=== PATIENT | female | born 1955 | race Caucasian/White ===

== ENCOUNTER → 2024-03-15 | Outpatient (CLI) | payer OTHER, SELFPAY ==
[2024-03-15 16:16] LABS: Basophils # (Auto) 0.1 Thou/mm3 (0.0-0.2); Basophils % (Auto) 2 % (0-2.5); Eosinophils # (Auto) 0.1 Thou/mm3 (0.0-0.5); Eosinophils % (Auto) 2 % (0-10); Hematocrit 29.7 % (36.0-46.0); Hemoglobin 10.2 g/dL (12.0-16.0); Immature Granulocytes % (Auto) 0 % (0-0); Immature Granulocytes Auto 0.01 Thou/mm3 (0.00-0.00); Lymphocytes # (Auto) 0.9 Thou/mm3 (1.0-4.8); Lymphocytes % (Auto) 23 % (10-50); Mean Corpuscular HGB Conc 34.3 g/dl (31.0-37.0); Mean Corpuscular Hemoglobin 34.6 pg (25.0-35.0); Mean Corpuscular Volume 101 fL (80-100); Monocytes # (Auto) 0.5 Thou/mm3 (0.0-0.8); Monocytes % (Auto) 13 % (0-12); Neutrophils # (Auto) 2.3 Thou/mm3 (1.8-7.7); Neutrophils % (Auto) 60 % (37-80); Nucleated Red Blood Cell % 0 /100 WBC (0); Platelet Count 248 Thou/mm3 (140-440); RDW Standard Deviation 44.2 fL (36.4-46.3); Red Blood Count 2.95 Miln/mm3 (4.00-5.20); White Blood Count 3.8 Thou/mm3 (3.6-11.0)
[2024-03-15 16:36] LABS: Alanine Aminotransferase 16 U/L (10-49); Albumin, Serum 4.6 gm/dL (3.4-4.8); Albumin/Globulin Ratio 2.6 (1.2-2.2); Alkaline Phosphatase 99 U/L (46-116); Anion Gap 6 (7-16); Aspartate Amino Transferase 18 U/L (0-34); BUN/Creatinine Ratio 10 Ratio (12-20); Bilirubin,Total 0.4 mg/dL (0.3-1.2); Blood Urea Nitrogen 7 mg/dL (9-23); Carbon Dioxide 28.8 mMol/L (20.0-31.0); Chloride 93 mMol/L (98-107); Creatinine (Component) 0.7 mg/dL (0.6-1.3); Globulin 1.8 gm/dL (2.3-3.5); Glucose 86 mg/dL (74-106); Osmolality,Calculated 254 (275-295); Phosphorous 3.4 mg/dL (2.4-5.1); Potassium 4.7 mMol/L (3.4-5.1); Sodium 128 mMol/L (136-145); Total Protein 6.4 gm/dL (5.7-8.2); eGFR > 60 See Note
== END | disposition home or self-care (01) ==
LOC: SCTO 14:33
PROVIDERS: PCP Internal Medicine; Referring Provider Internal Medicine; Visit Provider Internal Medicine Hematology & Oncology
DX: C50.912 Malignant neoplasm of unspecified site of left female breast (principal); R51.9 Headache, unspecified; I25.10 Atherosclerotic heart disease of native coronary artery without angina pectoris; I48.91 Unspecified atrial fibrillation; E87.1 Hypo-osmolality and hyponatremia
CPT/HCPCS: 36415; 80053; 84100; 85025

== ENCOUNTER → 2024-04-16 | Outpatient (CLI) | payer OTHER, SELFPAY ==
--- NOTE | 2024-04-16 10:19 | XR_ITS ---
Examination: CT chest with intravenous contrast CT chest without intravenous contrast 2-D reconstructions Date and time of exam:April 16, 2024 at 1043 hours INDICATIONS: Diagnosis malignant neoplasm left breast, TE chest December 29, 2023 bilateral pulmonary nodules aneurysmal dilatation ascending thoracic aorta CTDI:vol (mGy) 7.64 DLP: (mGycm) 287 Technique: Multiple axial sections of the thorax have been obtained. 3 mm slice thickness, from the hemidiaphragms to above the apices of the lungs. Mediastinal and lung density settings have been obtained. Intravenous contrast administered 60 cc [id number]-370. Noncontrast images have also been obtained. 2-D sagittal coronal images obtained. Low dose protocols were performed. One or more of the following dose reduction techniques were used; automated exposure control, adjustment of the mA and/or KV according to patient size, use of iterative reconstruction technique. Findings: 6 mm calcified right thyroid nodule Ascending thoracic aorta AP dimension 4.2 cm Pulmonary artery segments are not enlarged No pulmonary artery emboli Stable bilateral pulmonary nodules No interval pneumonia or pulmonary edema Liver cysts Absent gallbladder No pancreatic mass 2 mm 1 mm right renal calculi 1 mm 1 mm left renal calculi, no hydronephrosis Intact osseous structures IMPRESSION: 6 mm partially calcified right thyroid nodule Ascending thoracic aortic aneurysm AP dimension 4.2 cm Stable bilateral pulmonary nodules No interval pneumonia or pulmonary edema Bilateral nonobstructing renal calculi
== END | disposition home or self-care (01) ==
PROVIDERS: PCP Internal Medicine; Referring Provider Internal Medicine Hematology & Oncology; Visit Provider Internal Medicine Hematology & Oncology
DX: E04.1 Nontoxic single thyroid nodule (principal); I71.20 Thoracic aortic aneurysm, without rupture, unspecified; R91.8 Other nonspecific abnormal finding of lung field; N20.0 Calculus of kidney
CPT/HCPCS: 71270; A4649; Q9967

== ENCOUNTER → 2024-05-03 | Outpatient (CLI) | payer OTHER, SELFPAY ==
[2024-05-03 15:05] LABS: Albumin, Serum 4.7 gm/dL (3.4-4.8); Anion Gap 6 (7-16); BUN/Creatinine Ratio 10 Ratio (12-20); Blood Urea Nitrogen 6 mg/dL (9-23); Calcium 9.6 mg/dL (8.3-10.6); Calcium (Corrected) 9.6 mg/dL (8.5-10.1); Carbon Dioxide 30.4 mMol/L (20.0-31.0); Chloride 91 mMol/L (98-107); Creatinine (Component) 0.6 mg/dL (0.6-1.3); Glucose 84 mg/dL (74-106); Osmolality,Calculated 251 (275-295); Phosphorous 3.9 mg/dL (2.4-5.1); Potassium 4.2 mMol/L (3.4-5.1); Sodium 127 mMol/L (136-145); eGFR > 60 See Note
== END | disposition home or self-care (01) ==
LOC: COPL 13:55
PROVIDERS: PCP Internal Medicine; Referring Provider Internal Medicine; Visit Provider Internal Medicine
DX: E87.1 Hypo-osmolality and hyponatremia (principal)
CPT/HCPCS: 36415; 80069

== ENCOUNTER 2024-05-10 10:28 | Outpatient (RCR) | payer OTHER, SELFPAY ==
--- NOTE | 2024-05-10 13:30 | CTCFLWUP_ITS ---
Patient: KAYLA CARBAJAL : 1955 Page 2 of 2 FOLLOW UP NOTE DATE OF SERVICE: 05/10/2024 NAME: KAYLA CARBAJAL ACCOUNT: [id number] : 1955 AGE: 69 INTERVAL HISTORY: Patient is doing well and have no new complaints. 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 All this information is obtained from Ms. Carbajal. We do not have any of the records. According to Ms. Carbajal all her treatments were done in [facility]. She also states that since these treatments were done so long ago it will be difficult to get the records. She feels that most of her records might have been destroyed. 1989: Patient was diagnosed with melanoma. According to see her 7 lesions were removed. All were cancerous. The surgeries were done in [facility]. 1994: Ms. Carbajal was diagnosed with left breast cancer. She had radical mastectomy. 1 lymph node was positive. It was stage II disease. She had 1 year of chemotherapy which included Adriamycin, 5-FU and methotrexate. 1996: Ms. Carbajal was diagnosed with stage IV metastatic breast cancer. The cancer has spread to the lungs as well as left side of the neck. She was found to have 40 tumors in the neck. She also had a left neck dissection which showed 9 positive nodes. Ms. Carbajal had 3 years of various chemotherapy regimens which included Navelbine. She was started on Herceptin. However she was found to have HER2/melody negative disease in 1997. November 1998: Patient had stem cell transplantation at [facility]. She was continued on chemotherapy/Herceptin treatments. Chemotherapies ended in 2000. Herceptin was continued until 2003. Patient had breast reconstruction surgery in [address] [place] [address] Angulo. 2011: Patient had acute kidney failure. June 2016 she had third breast reconstruction surgery by Dr. Angulo. 2020: Patient had a colonoscopy done. 12/25/2021: PET/CT scan? 02/02/2022: CT scan of the chest with IV contrast? 02/03/2022: Ms. Carbajal had bone scan at [facility] 03/23/2022: CT scan of the head without IV contrast? 10/21/2022: CT scan of the chest abdomen and pelvis with IV contrast? 11/01/2022: Bone scan? 05/26/2023: CT scan of the chest without contrast? OTHER MEDICAL HISTORY/CONDITIONS: Metastatic breast cancer Anemia HTN Peripheral neuropathy Acute kidney failure - 2011 tonsillectomy - 1959 Melanoma x 7 - 1989 Left breast lumpectomy and radical mastectomy with lymph node dissection - 1994- [place] Cholecystectomy - 1994 - [place] Left neck dissection - 1996 - [place] Hysterctomy - 1996 - [place] breast [place] [facility] [place] Breast reconstruction - 1996 - [place] Second breast reconstruction surgery - 2007 - Dr. Charles Grissom 3rd Breast reconstructive surgery - 2016 - Dr. Charles Grissom BLE bypass graft - 2020 ?Clone Other Med Hx? FAMILY HISTORY: Mother:?uterine Sibling:?Atipical?Ductal?Hyperplasia Children:?Paternal?Grandmother?-?breast Cancer History:?Maternal aunts x 4 - breast/leukemia/stomach/melanoma ?Clone Family Hx? 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 MEDICATIONS: 1. albuterol sulfate - 90 mcg/actuation As directed 2. baclofen - 5 mg 1 tab Daily 3. Belsomra - 20 mg 1 tab Every day before sleep 4. folic acid - 1 mg 2 tab Daily 5. gabapentin - 600 mg 2 tab Three times a day 6. losartan - 100 mg 1 tab Daily 7. spironolactone - 50 mg 1 tab Daily 8. traZODone - 150 mg 1 tab Every day before sleep?Palabra Meds? Medications Last Reconciled by Haley Jacobson MA on 05/10/2024 ALLERGIES: morphine REVIEW OF SYSTEMS: A complete 14-point review of systems was performed and is negative except as noted in interval history. PHYSICAL EXAMINATION: VITAL SIGNS: PAIN: 0 - No pain GENERAL APPEARANCE: Appears well, in no apparent distress, appropriately interactive. HEENT: Normocephalic, no temporal wasting, normal conjunctiva, no scleral icterus, normal hearing, lips without lesions, neck normal range of motion. CARDIOVASCULAR: Not assessed. PULMONARY: Normal respiratory effort, no respiratory distress or use of accessory muscles, speaking in full sentences, no tachypnea. EXTREMITIES: No pedal edema or cyanosis. SKIN: Normal skin appearance. NEUROLOGIC: Alert and oriented x4. PSHYCHIATRIC: Appropriate affect, mood normal, behavior normal, intact thought and speech. LABORATORY DATA: I have personally reviewed and interpreted each of the patient?s relevant lab tests, abnormal findings are below: Date 05/03/24 ??GLUCOSE,RANDOM?(mg/dL) 84 ??BLOOD?UREA?NITROGEN?(mg/dL) 6?L ??CREATININE?(mg/dL) 0.60 ??SODIUM?(mmol/L) 127?L ??POTASSIUM?(mmol/L) 4.2 ??CHLORIDE?(mmol/L) 91?L ??CrCl?(CandG)?(ml/min) 71.73 ??ALBUMIN,?SERUM?(gm/dl) 4.7 ??CALCIUM,?SERUM?(mg/dL) 9.6 ??CALCIUM?SERUM?(CORRECTED)?(mg/dL) 9.6 ASSESSMENT/PLAN: 1. History of stage IV breast cancer in the past with left-sided neck as well as pulmonary mets treated with chemotherapy as well as bone marrow transplantation in November 1998. Patient was treated with chemotherapy and had stem cell transplant after she was sent in remission. She had autologous transplant after ablative chemotherapy. Bilateral mastectomies with silicone implants. Patient follows with surgeon in [place] 2. History of melanoma in 1994. She have 7 lesion which were resected and had no recurrence since her transplant CT scan do not show any evidence of recurrence of cancer Patient follows with cardiology for her aneurysmal aorta Patient gives history of breast in her grandmother and ovarian cancer in her mother. Patient's mother in her 30s from ovarian cancer. Given history of ovarian and breast cancer in family and self history of breast cancer patient referred to genetic testing CBC CMP cancer hereditary testing RETURN TO CLINIC: I will see her back in the clinic in 6 month. BILLING AND COMPLIANCE: I reviewed external records from providers outside my specialty as summarized above. I spent a total of 50 minutes on this patient?s care on the day of their visit excluding time spent related to any billed procedures. This time includes time spent with the patient as well as time spent documenting in the medical record, reviewing patients records and tests, obtaining history, placing orders, communicating with other healthcare professionals, counseling the patient, family or caregiver, and/or care coordination for the diagnoses above. Electronically Signed by: Rubén Avila MD T: 1:28 PM CC: PCP: Ирина Kaiser Referring: Ирина Kaiser This document was completed utilizing speech recognition software. Grammatical errors, random word insertions, pronoun errors, and incomplete sentences are an occasional consequence of this system due to software limitations, ambient noise, and hardware issues. Any formal questions or concerns about the content, text or information contained within the body of this dictation should be directly addressed to the provider for clarification.
== END 2024-05-11 23:59 | disposition home or self-care (01) ==
LOC: SCTC 10:28
PROVIDERS: PCP Internal Medicine; Referring Provider Internal Medicine; Visit Provider Internal Medicine Hematology & Oncology
DX: Z08 Encounter for follow-up examination after completed treatment for malignant neoplasm (principal); Z85.3 Personal history of malignant neoplasm of breast; Z90.13 Acquired absence of bilateral breasts and nipples; Z92.21 Personal history of antineoplastic chemotherapy; Z85.820 Personal history of malignant melanoma of skin; Z94.84 Stem cells transplant status; Z80.41 Family history of malignant neoplasm of ovary; Z80.3 Family history of malignant neoplasm of breast
CPT/HCPCS: 99212; G0463

== ENCOUNTER 2024-06-26 13:21 | Outpatient (AMB) | payer OTHER, SELFPAY ==
--- NOTE | 2024-06-26 13:32 | PD.ORTHCLVIS ---
Vital signs 06/26/24 14:06 Height 1.63 m Height Method Stated Weight 52.758 kg Weight Measurement Method Standing Scale BMI 19.9 BP 175/100 H Blood Pressure Source Automatic Cuff Blood Pressure Location Left Upper Arm Position Sitting Respiration 18 Pulse 76 Pulse Source Monitor Temp 97.8 F Temp Source Temporal Artery Scan Pulse Oximetry (%) 97 Oxygen Delivery Method Room Air Med/Allergies Allergies & Medications Allergies morphine Allergy (Intermediate, Verified 06/26/24 14:07) vomiting, severe headache meperidine Allergy (Mild, Verified 06/26/24 14:07) vomiting, severe headache Medication Reconciliation albuterol sulfate 90 mcg/actuation aerosol inhaler 2 inh inhalation 3XD PRN Shortness Of Breath 06/15/22 [History Confirmed 06/26/24] gabapentin 600 mg tablet 1,200 mg PO TID 06/15/22 [History Confirmed 06/26/24] losartan 100 mg tablet 100 mg PO DAILY 06/15/22 [History Confirmed 06/26/24] spironolactone 50 mg tablet 50 mg PO DAILY 06/15/22 [History Confirmed 06/26/24] trazodone 150 mg tablet 150 mg PO HS 06/15/22 [History Confirmed 06/26/24] atenolol 50 mg tablet 50 mg PO QDAY 01/26/24 [History Confirmed 06/26/24] baclofen 5 mg tablet 5 mg PO HS PRN Restless Leg(S) 01/26/24 [History Confirmed 06/26/24] suvorexant 20 mg tablet (Belsomra) 20 mg PO HS 01/26/24 [History Confirmed 06/26/24] hydralazine 25 mg tablet 25 mg PO TID #90 tabs 01/29/24 [Rx Confirmed 06/26/24] sodium chloride 1,000 mg soluble tablet 1,000 mg PO BID #30 tabs 01/29/24 [Rx Confirmed 06/26/24] naproxen 500 mg tablet 500 mg PO BID #30 tabs 06/26/24 [Rx] Exam Exam Patient is in no acute distress and is cooperative with the examination today. Breathing is nonlabored. In no respiratory distress. Patient has no paraspinal tenderness. Spinal deformity cannot be appreciated. The gait of the patient is nonantalgic Bilateral extremities were evaluated and demonstrates sensation intact to light touch. Palpable pedal pulses are present. No significant edema is present. Bilateral knees were examined and the patient has full strength and range of motion.. The right hip was examined. Patient was able to flex to 90 degrees, adduct to 30 degrees, abduct to 40 degrees, internally rotate to 20 degrees, and externally rotate to 20 degrees. Patient has a negative logroll. Stinchfield is negative. The patient is nontender diffusely to touch. The left hip was examined. Patient was able to flex to 90 degrees, adduct to 30 degrees, abduct to 40 degrees, internally rotate to 20 degrees, and externally rotate to 20 degrees. Patient has a negative logroll. The stinchfield is negative. The patient is tender to palpation laterally Assessment and Plan Problem List (1) Trochanteric bursitis of left hip: Status: Acute Plan: Patient is a 69-year-old Female with left hip pain and trochanteric bursitis. We discussed different options including anti-inflammatories, physical therapy, and a injection. She would like to try all 3. Recommend hip bursa cortisone injection as patient would like to proceed with conservative treatment at this time. The risks and benefits of the procedure were reviewed with the patient and patient gave verbal consent to continue with the procedure. Procedure: performed by Dr. Dennis Using sterile technique the left hip bursa was thoroughly prepped with alcohol prep, and approximately 1 cc of Kenalog 40 mg/mL and 4 cc of 1% Lidocaine was injected without resistance. The patient tolerated the procedure well. Advanced Care Planning Discussion Advance care planning discussed with:: patient Office Procedures GNS Level of Care Nursing/Assessment Patient Status: Initial/New Patient Nursing Assessment/Reassesment: Medication Reconciliation, Update PMH in EMR and Vital Signs Coordination of Care: Complex Care and Chronic Disease 1-5, Education Complex Pt/Fam, Consent,records obtained, informed consent, 1 Ins Authorization, Lab and Imaging orders, Results/Orders obtained and Staff clarify orders New Patient Charge New Patient Point Assignment: 1124 New Patient Point Charge: FORENSIC SCIENCE EXAMINER Level 4 (6106-9165) Surgical Proc/IM SQ injection Major Surgical Procedure: Yes (KNEE INJECTION ) Medication Given Medication Given Medication Given: Yes Documented Dose Given: 4 Route: Infiitration Medication Given Medication Given Medication Given: Yes Documented Dose Given: 1 Route: Infiitration Office Meds Xylocaine 10 mg/mL (1 %) injection solution Performing Provider: Avery Dennis MD Performing Location: [facility] Administered by: Avery Dennis MD on 06/26/24 13:56 Dose Route Admin Location Dispensed Lot Number Expiration Date [facility] L[employer] T[employer]er 20 mL Infiltration 20 mL [id number] [facility] triamcinolone acetonide 40 mg/mL suspension for injection Performing Provider: Avery Dennis MD Performing Location: [facility] Administered by: Avery Dennis MD on 06/26/24 13:56 Dose Route Admin Location Dispensed Lot Number Expiration Date [facility] [employer] 40 mg intra-articular KNEE 1 mL [id number] 11/09/25 [id number] TEVA PARENTERAL MA Intake Visit Data Collection New Patient or Established: New Patient (never been to [facility]) Reason for Visit:: BILATERAL HIP PAIN Seen by Clinical Staff ONLY (RN/MA): No PCP or OBGYN visit in last 3 months: Yes Hx Now: No Do You Feel Safe at Home: Yes Authorities Contacted: N/A Questionairres Past Medical History Past Medical History Have you ever been diagnosed with any of the following: Neurological Problems Alzheimer's Disease: No Seizures: No Peripheral Neuropathy: Yes Cardiology Problems Myocardial Infarction: No Cardiac Arrhythmia: No Atrial Fibrillation: No Angina: No Heart Murmur: No Coronary Artery Disease: No Atherosclerotic Heart Disease: No Peripheral Vascular Disease: No Hypercholesterolemia: Yes Congestive Heart Failure: No Congenital Heart Disease: No Valvular Heart Disease: No Rheumatic Fever: No Cardiomyopathy: No Edema: No Pericarditis: No Cellulitis: No Deep Vein Thrombosis: No Hypertension: Yes Hypotension: No Varicose Veins: No Respiratory Problems Chronic Obstructive Pulmonary Disease (COPD): No Asthma: Yes Pneumonia: Yes Smoking: No Smoking Exposure: No Genital/Urinary Problems Renal Disease: No Reproductive Problems Breast Cancer: Yes Pelvic Inflammatory Disease: No Endocrine Problems Diabetes Mellitus Type 1: No Diabetes Mellitus Type 2: No Blood Problems Anemia: No Sickle Cell Disease: No Psychologic Problems Depression: Yes Anxiety: Yes Other Problems Falls: No Blood Transfusions: Yes Blood Transfusion Reaction: No Anesthesia Reactions: No Chemotherapy: Yes Cancer: Yes Surgical History Pacemaker: No Subjective Visit Visit for: new patient and hip Immunization / Flu Flu Vaccine in the Last 12 Months: Yes Flu Vaccine Exclusion Criteria: Already Received History of Present Illness Chief complaint: left hip trochanteric bursitis Patient is a 69-year-old female with a history of left hip trochanteric bursitis. She has had over 6 months of relief with the last injection. She would like a new left hip injection. The pain is directly on the side over the greater trochanter. Does not radiate past the knee. Pain Pain level (0-10): 6 Pain duration: ALL DAY Pain location: outside (lateral) Pain quality: sharp Pain timing: night Associated signs & symptoms: numbness Ambulatory data Ambulatory device: none Treatments Number of previous injections: 2 Improvement with previous injections: No Improvement with PT: No Improvement with NSAIDS: no Review of Systems Review of Systems: All systems negative unless otherwise noted in HPI.
[2024-06-26 14:06] VITALS: BP 175/100; PULSE 76; RESP 18; TEMP 36.6; O2SAT 97; BMI 19.9
== END 2024-06-26 13:55 | disposition home or self-care (01) ==
LOC: HODSRG 13:21
PROVIDERS: PCP Internal Medicine; Referring Provider Internal Medicine; Supervising Provider Orthopaedic Surgery Adult Reconstructive Orthopaedic Surgery; Visit Provider Orthopaedic Surgery Adult Reconstructive Orthopaedic Surgery
DX: M70.62 Trochanteric bursitis, left hip (principal); E78.00 Pure hypercholesterolemia, unspecified; I10 Essential (primary) hypertension; J45.909 Unspecified asthma, uncomplicated
CPT/HCPCS: 20610; 99204; J3301; J3490; G0463

== ENCOUNTER → 2024-08-02 | Outpatient (CLI) | payer OTHER, SELFPAY ==
[2024-08-02 12:21] LABS: Basophils % (Auto) 1 % (0-2.5); Eosinophils % (Auto) 1 % (0-10); Hematocrit 32.9 % (36.0-46.0); Hemoglobin 11.4 g/dL (12.0-16.0); Immature Granulocytes % (Auto) 1 % (0-0); Immature Granulocytes Auto 0.04 Thou/mm3 (0.00-0.00); Lymphocytes # (Auto) 1.2 Thou/mm3 (1.0-4.8); Lymphocytes % (Auto) 23 % (10-50); Mean Corpuscular HGB Conc 34.7 g/dl (31.0-37.0); Mean Corpuscular Hemoglobin 34.5 pg (25.0-35.0); Mean Corpuscular Volume 100 fL (80-100); Monocytes # (Auto) 0.6 Thou/mm3 (0.0-0.8); Monocytes % (Auto) 11 % (0-12); Neutrophils # (Auto) 3.3 Thou/mm3 (1.8-7.7); Neutrophils % (Auto) 64 % (37-80); Nucleated Red Blood Cell % 0 /100 WBC (0); Platelet Count 304 Thou/mm3 (140-440); RDW Standard Deviation 45.5 fL (36.4-46.3); White Blood Count 5.2 Thou/mm3 (3.6-11.0)
[2024-08-02 12:30] LABS: Albumin, Serum 4.6 gm/dL (3.4-4.8); Anion Gap 6 (7-16); BUN/Creatinine Ratio 14 Ratio (12-20); Blood Urea Nitrogen 11 mg/dL (9-23); Calcium 10.2 mg/dL (8.3-10.6); Calcium (Corrected) 10.2 mg/dL (8.5-10.1); Carbon Dioxide 29.1 mMol/L (20.0-31.0); Chloride 97 mMol/L (98-107); Creatinine (Component) 0.8 mg/dL (0.6-1.3); Glucose 107 mg/dL (74-106); Osmolality,Calculated 263 (275-295); Phosphorous 3.8 mg/dL (2.4-5.1); Potassium 4.2 mMol/L (3.4-5.1); Sodium 132 mMol/L (136-145); eGFR > 60 See Note
[2024-08-02 12:46] LABS: Collection Type, Urine Clean Catch
[2024-08-02 13:14] LABS: Bilirubin,Urine Negative (Negative); Blood,Urine Negative (Negative); Clarity,Urine Clear (Clear/Hazy); Color,Urine Lt-Yellow (Lt Yel-Yel); Culture Indicated,Urine Not Indicated; Glucose, Urine Negative (Negative); Hyaline Casts,Urine < 1 /hpf (0-1); Ketones,Urine Negative (Negative); Leukocyte Esterase,Urine Negative (Negative); Nitrite,Urine Negative (Negative); PH,Urine 6.5 (5.0-7.0); Protein,Urine Negative (Neg - Trace); RBC,Urine 2 /hpf (0-3); Specific Gravity,Urine 1.012 (1.001-1.035); Squamous Epithelial Cell,Urine < 1 /hpf (0-5); Urobilinogen,Urine Negative mg/dL (0.0-1.0); WBC,Urine 1 /hpf (0-5)
== END | disposition home or self-care (01) ==
LOC: COPL 11:08
PROVIDERS: PCP Internal Medicine; Referring Provider Internal Medicine; Visit Provider Internal Medicine
DX: I10 Essential (primary) hypertension (principal); E87.1 Hypo-osmolality and hyponatremia
CPT/HCPCS: 36415; 80069; 81001; 85025

== ENCOUNTER 2024-09-27 13:02 | Outpatient (AMB) | payer OTHER, SELFPAY ==
--- NOTE | 2024-09-27 13:22 | PD.ORTHCLVIS ---
Vital signs 09/27/24 13:42 Height 1.63 m Height Method Stated Weight 52.787 kg Weight Measurement Method Standing Scale BMI 19.8 BP 107/67 Blood Pressure Source Automatic Cuff Blood Pressure Location Right Upper Arm Position Sitting Respiration 19 Pulse 75 Pulse Source Monitor Temp 97.7 F Temp Source Temporal Artery Scan Pulse Oximetry (%) 91 L Oxygen Delivery Method Room Air Med/Allergies Allergies & Medications Allergies morphine Allergy (Intermediate, Verified 09/27/24 13:42) vomiting, severe headache meperidine Allergy (Mild, Verified 09/27/24 13:42) vomiting, severe headache Medication Reconciliation albuterol sulfate 90 mcg/actuation aerosol inhaler 2 inh inhalation 3XD PRN Shortness Of Breath 06/15/22 [History Confirmed 09/27/24] gabapentin 600 mg tablet 1,200 mg PO TID 06/15/22 [History Confirmed 09/27/24] losartan 100 mg tablet 100 mg PO DAILY 06/15/22 [History Confirmed 09/27/24] spironolactone 50 mg tablet 50 mg PO DAILY 06/15/22 [History Confirmed 09/27/24] trazodone 150 mg tablet 150 mg PO HS 06/15/22 [History Confirmed 09/27/24] atenolol 50 mg tablet 50 mg PO QDAY 01/26/24 [History Confirmed 09/27/24] baclofen 5 mg tablet 5 mg PO HS PRN Restless Leg(S) 01/26/24 [History Confirmed 09/27/24] suvorexant 20 mg tablet (Belsomra) 20 mg PO HS 01/26/24 [History Confirmed 09/27/24] hydralazine 25 mg tablet 25 mg PO TID #90 tabs 01/29/24 [Rx Confirmed 09/27/24] sodium chloride 1,000 mg soluble tablet 1,000 mg PO BID #30 tabs 01/29/24 [Rx Confirmed 09/27/24] naproxen 500 mg tablet 500 mg PO BID #30 tabs 06/26/24 [Rx Confirmed 09/27/24] meloxicam 7.5 mg tablet 7.5 mg PO QDAY #45 tabs 09/27/24 [Rx Confirmed 09/27/24] Exam Exam Patient is in no acute distress and is cooperative with the examination today. Breathing is nonlabored. In no respiratory distress. Patient has no paraspinal tenderness. Spinal deformity cannot be appreciated. The gait of the patient is nonantalgic Bilateral extremities were evaluated and demonstrates sensation intact to light touch. Palpable pedal pulses are present. No significant edema is present. Bilateral knees were examined and the patient has full strength and range of motion.. The right hip was examined. Patient was able to flex to 90 degrees, adduct to 30 degrees, abduct to 40 degrees, internally rotate to 20 degrees, and externally rotate to 20 degrees. Patient has a negative logroll. Stinchfield is negative. The patient is nontender diffusely to touch. The left hip was examined. Patient was able to flex to 90 degrees, adduct to 30 degrees, abduct to 40 degrees, internally rotate to 20 degrees, and externally rotate to 20 degrees. Patient has a negative logroll. The stinchfield is negative. The patient is tender to palpation laterally Assessment and Plan Problem List (1) Trochanteric bursitis of left hip: Status: Acute Plan: Patient is a 69-year-old Female with left hip pain and trochanteric bursitis. We discussed different options including anti-inflammatories, physical therapy, and a injection. She would like to try Left hip bursitis injection again today Recommend hip bursa cortisone injection as patient would like to proceed with conservative treatment at this time. The risks and benefits of the procedure were reviewed with the patient and patient gave verbal consent to continue with the procedure. Procedure: performed by Dr. Dennis Using sterile technique the left hip bursa was thoroughly prepped with alcohol prep, and approximately 1 cc of Kenalog 40 mg/mL and 4 cc of 1% Lidocaine was injected without resistance. The patient tolerated the procedure well. Advanced Care Planning Discussion Advance care planning discussed with:: patient Office Procedures GNS Level of Care Nursing/Assessment Patient Status: Established Patient Nursing Assessment/Reassesment: Medication Reconciliation, Update PMH in EMR and Vital Signs Coordination of Care: Complex Care and Chronic Disease 1-5, Education Complex Pt/Fam, Consent,records obtained, informed consent, Lab and Imaging orders, Results/Orders obtained and Staff clarify orders Established Patient Charge Established Patient Point Assignment: 110 Established Patient Point Charge: EP Level 3 (80-115) Surgical Proc/IM SQ injection Major Surgical Procedure: Yes (hip injection) Medication Given Medication Given Medication Given: Yes Documented Dose Given: 1 Route: Infiitration Medication Given Medication Given Medication Given: Yes Documented Dose Given: 1 Route: Infiitration Office Meds Xylocaine 10 mg/mL (1 %) injection solution Performing Provider: Avery Dennis MD Performing Location: [facility] Administered by: Avery Dennis MD on 09/27/24 13:46 Dose Route Admin Location Dispensed Lot Number Expiration Date [facility] Thermo Cementing Folder Operator 20 mL Infiltration 20 mL [id number] [facility] triamcinolone acetonide 40 mg/mL suspension for injection Performing Provider: Avery Dennis MD Performing Location: [facility] Administered by: Avery Dennis MD on 09/27/24 13:46 Dose Route Admin Location Dispensed Lot Number Expiration Date [facility] [employer]ement[employer] Folder Operator 40 mg intra-articular knee 1 mL [id number] 10/09/25 64219-332-70 TELMA CALVO MA Intake Visit Data Collection New Patient or Established: Established Patient (seen at [facility] within 3 years) Reason for Visit:: hip injection Seen by Clinical Staff ONLY (RN/MA): No Verbal consent obtained for Telemed visit?: No PCP or OBGYN visit in last 3 months: Yes Hx Now: No Do You Feel Safe at Home: Yes Authorities Contacted: N/A Questionairres Past Medical History Past Medical History Have you ever been diagnosed with any of the following: Neurological Problems Alzheimer's Disease: No Seizures: No Peripheral Neuropathy: Yes Cardiology Problems Myocardial Infarction: No Cardiac Arrhythmia: No Atrial Fibrillation: No Angina: No Heart Murmur: No Coronary Artery Disease: No Atherosclerotic Heart Disease: No Peripheral Vascular Disease: No Hypercholesterolemia: Yes Congestive Heart Failure: No Congenital Heart Disease: No Valvular Heart Disease: No Rheumatic Fever: No Cardiomyopathy: No Edema: No Pericarditis: No Cellulitis: No Deep Vein Thrombosis: No Hypertension: Yes Hypotension: No Varicose Veins: No Respiratory Problems Chronic Obstructive Pulmonary Disease (COPD): No Asthma: Yes Pneumonia: Yes Smoking: No Smoking Exposure: No Genital/Urinary Problems Renal Disease: No Reproductive Problems Breast Cancer: Yes Pelvic Inflammatory Disease: No Endocrine Problems Diabetes Mellitus Type 1: No Diabetes Mellitus Type 2: No Blood Problems Anemia: No Sickle Cell Disease: No Psychologic Problems Depression: Yes Anxiety: Yes Other Problems Falls: No Blood Transfusions: Yes Blood Transfusion Reaction: No Anesthesia Reactions: No Chemotherapy: Yes Cancer: Yes Surgical History Pacemaker: No Subjective Visit Visit for: new patient and hip Immunization / Flu Flu Vaccine in the Last 12 Months: Yes Flu Vaccine Exclusion Criteria: Already Received History of Present Illness Chief complaint: left hip trochanteric bursitis Patient is a 69-year-old female with a history of left hip trochanteric bursitis. She has had over 6 months of relief with the last injection. She would like a new left hip injection. The pain is directly on the side over the greater trochanter. Does not radiate past the knee. She reports that the last hip trochanteric bursitis injection lasted for 3 months. She started getting pain 1 week ago Personal History Occupation: retired Red flag PMH: BMI BMI Counceling provided: Yes Pain Pain level (0-10): 6 Pain duration: ALL DAY Pain location: outside (lateral) Pain quality: sharp Pain timing: night Associated signs & symptoms: numbness Ambulatory data Ambulatory device: none Treatments Number of previous injections: 2 Improvement with previous injections: No Improvement with PT: No Improvement with NSAIDS: no Review of Systems Review of Systems: All systems negative unless otherwise noted in HPI.
[2024-09-27 13:42] VITALS: BP 107/67; PULSE 75; RESP 19; TEMP 36.5; O2SAT 91; BMI 19.8
== END 2024-09-27 13:41 | disposition home or self-care (01) ==
LOC: HODSRG 13:02
PROVIDERS: PCP Internal Medicine; Referring Provider Internal Medicine; Supervising Provider Orthopaedic Surgery Adult Reconstructive Orthopaedic Surgery; Visit Provider Orthopaedic Surgery Adult Reconstructive Orthopaedic Surgery
DX: M70.62 Trochanteric bursitis, left hip (principal); M25.552 Pain in left hip; I10 Essential (primary) hypertension; E78.00 Pure hypercholesterolemia, unspecified
CPT/HCPCS: 20610; 99213; J3301; J3490; G0463

== ENCOUNTER → 2024-10-24 | Outpatient (CLI) | payer OTHER, SELFPAY ==
[2024-10-24 14:14] LABS: Basophils # (Auto) 0.1 Thou/mm3 (0.0-0.2); Basophils % (Auto) 1 % (0-2.5); Eosinophils # (Auto) 0.1 Thou/mm3 (0.0-0.5); Eosinophils % (Auto) 2 % (0-10); Hematocrit 32.6 % (36.0-46.0); Hemoglobin 11.6 g/dL (12.0-16.0); Immature Granulocytes Auto 0.01 Thou/mm3 (0.00-0.00); Lymphocytes # (Auto) 0.7 Thou/mm3 (1.0-4.8); Lymphocytes % (Auto) 12 % (10-50); Mean Corpuscular HGB Conc 35.6 g/dl (31.0-37.0); Mean Corpuscular Hemoglobin 33.3 pg (25.0-35.0); Mean Corpuscular Volume 94 fL (80-100); Monocytes # (Auto) 0.7 Thou/mm3 (0.0-0.8); Monocytes % (Auto) 14 % (0-12); Neutrophils # (Auto) 3.9 Thou/mm3 (1.8-7.7); Neutrophils % (Auto) 71 % (37-80); Nucleated Red Blood Cell # 0.00 Thou/mm3 (0.00-0.00); Nucleated Red Blood Cell % 0 /100 WBC (0); Platelet Count 402 Thou/mm3 (140-440); RDW Standard Deviation 41.7 fL (36.4-46.3); Red Blood Count 3.48 Miln/mm3 (4.00-5.20); White Blood Count 5.5 Thou/mm3 (3.6-11.0)
[2024-10-24 14:21] LABS: Glucose Estimated Average 88 mg/dL (80-131); Hemoglobin A1C 4.7 % Hgb (4.8-6.0)
[2024-10-24 14:24] LABS: Collection Type, Urine Clean Catch
[2024-10-24 14:33] LABS: Alanine Aminotransferase 11 U/L (10-49); Albumin, Serum 4.2 gm/dL (3.4-4.8); Albumin/Globulin Ratio 1.8 (1.2-2.2); Alkaline Phosphatase 139 U/L (46-116); Anion Gap 9 (7-16); Aspartate Amino Transferase 21 U/L (0-34); BUN/Creatinine Ratio 9 Ratio (12-20); Bilirubin,Direct 0.3 mg/dL (0.0-0.3); Bilirubin,Total 0.8 mg/dL (0.3-1.2); Blood Urea Nitrogen 6 mg/dL (9-23); Calcium 10.2 mg/dL (8.3-10.6); Calcium (Corrected) 10.2 mg/dL (8.5-10.1); Carbon Dioxide 28.5 mMol/L (20.0-31.0); Cardiac Risk Estimate 2.5 RATIO (3.7-5.6); Chloride 90 mMol/L (98-107); Cholesterol 151 mg/dL (132-200); Creatinine (Component) 0.7 mg/dL (0.6-1.3); Globulin 2.4 gm/dL (2.3-3.5); Glucose 87 mg/dL (74-106); HDL Cholesterol 61 mg/dL (40-60); LDL Cholesterol,Calculated 80 mg/dL (0-130); Osmolality,Calculated 251 (275-295); Phosphorous 2.8 mg/dL (2.4-5.1); Potassium 4.6 mMol/L (3.4-5.1); Sodium 127 mMol/L (136-145); Thyroid Stimulating Hormone 1.00 uIU/mL (0.55-4.78); Total Protein 6.6 gm/dL (5.7-8.2); Triglycerides 50 mg/dL (30-150); Uric Acid 2.0 mg/dL (3.1-7.8); Vitamin B12 443 pg/mL (211-911); Vitamin D 25 Hydroxy Total 45.5 ng/mL (7.3-40.2); eGFR > 60 See Note
[2024-10-24 14:45] LABS: Bacteria,Urine Rare; Bilirubin,Urine Negative (Negative); Blood,Urine Negative (Negative); Clarity,Urine Clear (Clear/Hazy); Color,Urine Lt-Yellow (Lt Yel-Yel); Culture Indicated,Urine Not Indicated; Glucose, Urine Negative (Negative); Ketones,Urine Negative (Negative); Leukocyte Esterase,Urine Negative (Negative); Nitrite,Urine Negative (Negative); PH,Urine 7.5 (5.0-7.0); Protein,Urine Negative (Neg - Trace); RBC,Urine 6 /hpf (0-3); Specific Gravity,Urine 1.010 (1.001-1.035); Squamous Epithelial Cell,Urine < 1 /hpf (0-5); Urobilinogen,Urine Negative mg/dL (0.0-1.0); WBC,Urine 1 /hpf (0-5)
== END | disposition home or self-care (01) ==
PROVIDERS: PCP Internal Medicine; Referring Provider Internal Medicine; Visit Provider Internal Medicine Hematology & Oncology
DX: Z00.00 Encounter for general adult medical examination without abnormal findings (principal); I10 Essential (primary) hypertension; C50.912 Malignant neoplasm of unspecified site of left female breast; R51.9 Headache, unspecified
CPT/HCPCS: 36415; 80048; 80053; 80061; 80076; 81001; 82248; 82306; 82607; 83036; 84100; 84443; 84550; 85025

== ENCOUNTER 2024-11-07 11:00 | Outpatient (RCR) | payer OTHER, SELFPAY ==
--- NOTE | 2024-11-18 22:01 | CTCFLWUP_ITS ---
Patient: KAYLA CARBAJAL : 1955 Page 2 of 3 FOLLOW UP NOTE DATE OF SERVICE: 11/07/2024 NAME: KAYLA CARBAJAL ACCOUNT: [id number] : 1955 AGE: 69 INTERVAL HISTORY: Patient is doing well and have no new complaints. 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 All this information is obtained from Ms. Carbajal. We do not have any of the records. According to Ms. Carbajal all her treatments were done in [facility]. She also states that since these treatments were done so long ago it will be difficult to get the records. She feels that most of her records might have been destroyed. 1989: Patient was diagnosed with melanoma. According to see her 7 lesions were removed. All were cancerous. The surgeries were done in [facility]. 1994: Ms. Carbajal was diagnosed with left breast cancer. She had radical mastectomy. 1 lymph node was positive. It was stage II disease. She had 1 year of chemotherapy which included Adriamycin, 5-FU and methotrexate. 1996: Ms. Carbajal was diagnosed with stage IV metastatic breast cancer. The cancer has spread to the lungs as well as left side of the neck. She was found to have 40 tumors in the neck. She also had a left neck dissection which showed 9 positive nodes. Ms. Carbajal had 3 years of various chemotherapy regimens which included Navelbine. She was started on Herceptin. However she was found to have HER2/melody negative disease in 1997. November 1998: Patient had stem cell transplantation at [facility]. She was continued on chemotherapy/Herceptin treatments. Chemotherapies ended in 2000. Herceptin was continued until 2003. Patient had breast reconstruction surgery in [address] [place] [address] Angulo. 2011: Patient had acute kidney failure. June 2016 she had third breast reconstruction surgery by Dr. Angulo. 2020: Patient had a colonoscopy done. 12/25/2021: PET/CT scan? 02/02/2022: CT scan of the chest with IV contrast? 02/03/2022: Ms. Carbajal had bone scan at [facility] 03/23/2022: CT scan of the head without IV contrast? 10/21/2022: CT scan of the chest abdomen and pelvis with IV contrast? 11/01/2022: Bone scan? 05/26/2023: CT scan of the chest without contrast? OTHER MEDICAL HISTORY/CONDITIONS: Metastatic breast cancer Anemia HTN Peripheral neuropathy Acute kidney failure - 2011 tonsillectomy - 1959 Melanoma x 7 - 1989 Left breast lumpectomy and radical mastectomy with lymph node dissection [place] 1994[place] Cholecystectomy - 1994 - [place] Left neck dissection - 1996 - [place] Hysterctomy - 1996 - [place] [facility] [place] Breast reconstruction - 1996 - [place] Second breast reconstruction surgery - 2007 - Dr. Charles Grissom 3rd Breast reconstructive surgery - 2016 - Dr. 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 albuterol sulfate - 90 mcg/actuation As directed 2. baclofen - 5 mg 1 tab Daily 3. Belsomra - 20 mg 1 tab Every day before sleep 4. folic acid - 1 mg 2 tab Daily 5. gabapentin - 600 mg 2 tab Three times a day 6. losartan - 100 mg 1 tab Daily 7. spironolactone - 50 mg 1 tab Daily Medications Last Reconciled by Vee Godinez MD on 11/07/2024 ALLERGIES: morphine REVIEW OF SYSTEMS: A complete 14-point review of systems was performed and is negative except as noted in interval history. PHYSICAL EXAMINATION: VITAL SIGNS: Temperature?97.5, B/P?116/69, Oxygen?Saturation?93% Weight?106?lbs PAIN: 0 - No pain ECOG Performance Status: 0 - Asymptomatic and fully active GENERAL APPEARANCE: Appears well, in no apparent distress, appropriately interactive. HEENT: Normocephalic, no temporal wasting, normal conjunctiva, no scleral icterus, normal hearing, lips without lesions, neck normal range of motion. CARDIOVASCULAR: Not assessed. PULMONARY: Normal respiratory effort, no respiratory distress or use of accessory muscles, speaking in full sentences, no tachypnea. EXTREMITIES: No pedal edema or cyanosis. SKIN: Normal skin appearance. NEUROLOGIC: Alert and oriented x4. PSHYCHIATRIC: Appropriate affect, mood normal, behavior normal, intact thought and speech. LABORATORY DATA: I have personally reviewed and interpreted each of the patient?s relevant lab tests, abnormal findings are below: Date 08/02/24 10/24/24 ??WHITE?BLOOD?COUNT?(Thou/mm3) 5.2 5.5 ??RED?BLOOD?COUNT?(Miln/mm3) 3.30?L 3.48?L ??HEMOGLOBIN?(gm/dl) 11.4?L 11.6?L ??HEMATOCRIT?(%) 32.9?L 32.6?L ??PLATELET?COUNT?(Thou/mm3) 304 402 ??NEUTROPHILS?%,?AUTO?(%) 64 71 ??LYMPH?%,?AUTO?(%) 23 12 ??NEUTROPHILS,?AUTO?(Thou/mm3) 3.3 3.9 ??GLUCOSE,RANDOM?(mg/dL) 107?H 87 ??BLOOD?UREA?NITROGEN?(mg/dL) 11 6?L ??CREATININE?(mg/dL) 0.80 0.70 ??SODIUM?(mmol/L) 132?L 127?L ??POTASSIUM?(mmol/L) 4.2 4.6 ??CHLORIDE?(mmol/L) 97?L 90?L ??CrCl?(CandG)?(ml/min) 55.13 63.00 ??AST/SGOT?(Unit/L) ? 21 ??ALT/SGPT?(Unit/L) ? 11 ??ALKALINE?PHOSPHATASE?(Unit/L) ? 139?H ??BILIRUBIN,?TOTAL?(mg/dL) ? 0.8 ??PROTEIN?TOTAL?(gm/dl) ? 6.6 ??ALBUMIN,?SERUM?(gm/dl) 4.6 4.2 ??GLOBULIN?(gm/dl) ? 2.4 ??ALBUMIN/GLOBULIN?RATIO ? 1.8 ??CALCIUM,?SERUM?(mg/dL) 10.2 10.2 ??CALCIUM?SERUM?(CORRECTED)?(mg/dL) 10.2?H 10.2?H ASSESSMENT/PLAN: 1. History of stage IV breast cancer in the past with left-sided neck as well as pulmonary mets treated with chemotherapy as well as bone marrow transplantation in November 1998. Patient was treated with chemotherapy and had stem cell transplant after she was sent in remission. She had autologous transplant after ablative chemotherapy. Bilateral mastectomies with silicone implants. Patient follows with surgeon in [place] 2. History of melanoma in 1994. She have 7 lesion which were resected and had no recurrence since her transplant CT scan do not show any evidence of recurrence of cancer Patient follows with cardiology for her aneurysmal aorta Patient gives history of breast in her grandmother and ovarian cancer in her mother. Patient's mother in her 30s from ovarian cancer. Given history of ovarian and breast cancer in family and self history of breast cancer patient referred to genetic testing Anemia Patient have anemia Will do nutritional workup as well as myeloma workup ORDERS: Order # Description [id number] Iron Panel + Ferritin + Vitamin B-12 + Folic Acid; Serum + Lactate Dehydrogenase (LDH) + Assay Of Haptoglobin Quant + Reticulocyte Count [id number] Serum Protein Electrophoresis + Serum Immunofixation Electrophoresis + Free kappa and lambda light chains plus ratio, quantitative [id number] Erythropoieten Level [id number] Follow Up 3 Months [id number] Comprehensive Metabolic Panel - 12 + CBC with Auto Diff [id number] CT Scan + Chest + Abdomen and Pelvis + With W/O Contrast [id number] Follow Up 2 Months [id number] RETURN TO CLINIC: I reviewed the diagnosis, prognosis, and recommended treatment/procedure options with the patient (and/or their legal sales representative livestock), including the potential benefits, risks, side effects and alternative therapies. We also discussed the option of no treatment and the possibility of clinical trial participation, if applicable. All questions were addressed, and they demonstrated understanding. They provided informed consent to proceed with the proposed plan of care. BILLING AND COMPLIANCE: I reviewed external records from providers outside my specialty as summarized above. I spent a total of 50 minutes on this patient?s care on the day of their visit excluding time spent related to any billed procedures. This time includes time spent with the patient as well as time spent documenting in the medical record, reviewing patients records and tests, obtaining history, placing orders, communicating with other healthcare professionals, counseling the patient, family or caregiver, and/or care coordination for the diagnoses above. Electronically Signed by: Rubén Avial MD T: 9:58 PM CC: PCP: Ирина Kaiser Referring: Ирина Kaiser This document was completed utilizing speech recognition software. Grammatical errors, random word insertions, pronoun errors, and incomplete sentences are an occasional consequence of this system due to software limitations, ambient noise, and hardware issues. Any formal questions or concerns about the content, text or information contained within the body of this dictation should be directly addressed to the provider for clarification.
== END 2024-11-08 23:59 | disposition home or self-care (01) ==
LOC: SCTC 11:00
PROVIDERS: PCP Internal Medicine; Referring Provider Internal Medicine; Visit Provider Internal Medicine Hematology & Oncology
DX: Z08 Encounter for follow-up examination after completed treatment for malignant neoplasm (principal); Z85.3 Personal history of malignant neoplasm of breast; Z90.13 Acquired absence of bilateral breasts and nipples; Z92.21 Personal history of antineoplastic chemotherapy; Z94.84 Stem cells transplant status; Z80.3 Family history of malignant neoplasm of breast; Z80.41 Family history of malignant neoplasm of ovary; D64.9 Anemia, unspecified
CPT/HCPCS: 99212; G0463

== ENCOUNTER → 2025-01-03 | Outpatient (CLI) | payer OTHER, SELFPAY ==
[2025-01-03 11:37] LABS: Basophils # (Auto) 0.1 Thou/mm3 (0.0-0.2); Basophils % (Auto) 2 % (0-2.5); Eosinophils # (Auto) 0.1 Thou/mm3 (0.0-0.5); Eosinophils % (Auto) 2 % (0-10); Hematocrit 33.5 % (36.0-46.0); Hemoglobin 11.2 g/dL (12.0-16.0); Immature Granulocytes Auto 0.02 Thou/mm3 (0.00-0.00); Immature Reticulocyte Fraction 13.0 % (3.0-15.9); Lymphocytes # (Auto) 1.1 Thou/mm3 (1.0-4.8); Lymphocytes % (Auto) 28 % (10-50); Mean Corpuscular HGB Conc 33.4 g/dl (31.0-37.0); Mean Corpuscular Hemoglobin 31.1 pg (25.0-35.0); Mean Corpuscular Volume 93 fL (80-100); Monocytes # (Auto) 0.6 Thou/mm3 (0.0-0.8); Monocytes % (Auto) 16 % (0-12); Neutrophils # (Auto) 2.0 Thou/mm3 (1.8-7.7); Neutrophils % (Auto) 52 % (37-80); Nucleated Red Blood Cell # 0.00 Thou/mm3 (0.00-0.00); Nucleated Red Blood Cell % 0 /100 WBC (0); Platelet Count 332 Thou/mm3 (140-440); RDW Standard Deviation 49.4 fL (36.4-46.3); Red Blood Count 3.60 Miln/mm3 (4.00-5.20); Reticulocyte % (Auto) 2.3 % (0.5-1.5); Reticulocyte Absolute Auto 81.7 Biln/L (25.0-75.0); Reticulocyte Hgb Content 38.7 pg (28.0-35.0); White Blood Count 3.8 Thou/mm3 (3.6-11.0)
[2025-01-03 11:49] LABS: Alanine Aminotransferase 10 U/L (10-49); Albumin, Serum 4.4 gm/dL (3.4-4.8); Albumin/Globulin Ratio 2.1 (1.2-2.2); Alkaline Phosphatase 94 U/L (46-116); Anion Gap 9 (7-16); Aspartate Amino Transferase 20 U/L (0-34); BUN/Creatinine Ratio 8 Ratio (12-20); Bilirubin,Total 0.9 mg/dL (0.3-1.2); Blood Urea Nitrogen < 5 mg/dL (9-23); Calcium 10.1 mg/dL (8.3-10.6); Calcium (Corrected) 10.1 mg/dL (8.5-10.1); Carbon Dioxide 32.9 mMol/L (20.0-31.0); Chloride 95 mMol/L (98-107); Creatinine (Component) 0.6 mg/dL (0.6-1.3); Globulin 2.1 gm/dL (2.3-3.5); Glucose 100 mg/dL (74-106); LDH (Lactate Dehydrogenase) 154 U/L (120-246); Osmolality,Calculated 271 (275-295); Potassium 3.4 mMol/L (3.4-5.1); Sodium 137 mMol/L (136-145); Total Protein 6.5 gm/dL (5.7-8.2); eGFR > 60 See Note
[2025-01-03 12:21] LABS: Ferritin 169 ng/mL (7.3-270.7); Iron 89 mcg/dL (50-170); Percent Iron Saturation 28 % (20-55); Total Iron Binding Capacity 309 mcg/dL (250-425); Unsaturated Iron Binding 220 (225-295)
[2025-01-03 12:22] LABS: Folate 13.34 ng/mL (>5.38); Vitamin B12 262 pg/mL (211-911)
[2025-01-03 14:12] LABS: Parathyroid Hormone Intact 71.0 pg/ml (18.5-88.0)
[2025-01-09 19:49] LABS: Albumin 4.3 g/dL (3.8-4.8); Alpha-1-Globulin 0.2 g/dL (0.2-0.3); Alpha-2-Globulin 0.7 g/dL (0.5-0.9); Beta-1-Globulin 0.4 g/dL (0.4-0.6); Beta-2-globulin 0.3 g/dL (0.2-0.5); Gamma Globulin 0.8 g/dL (0.8-1.7); Kappa Light Chain, Free 21.5 mg/L (3.3-19.4); Lambda Light Chain, Free 19.9 mg/L (5.7-26.3)
[2025-01-10 06:27] LABS: Erythropoietin (EPO)* 9.6 mIU/mL (2.6-18.5); Haptoglobin* 133 mg/dL (43-212); Kappa/Lambda, Free Ratio 1.08 (0.26-1.65); Protein, total, serum 6.7 g/dL (6.1-8.1)
== END | disposition home or self-care (01) ==
LOC: SCTO 10:36
PROVIDERS: PCP Internal Medicine; Referring Provider Internal Medicine Hematology & Oncology; Visit Provider Internal Medicine Hematology & Oncology
DX: C50.912 Malignant neoplasm of unspecified site of left female breast (principal); R51.9 Headache, unspecified
CPT/HCPCS: 36415; 80053; 82607; 82668; 82728; 82746; 83010; 83521; 83540; 83550; 83615; 83970; 84155; 84165; 85025; 85046; 86334

== ENCOUNTER → 2025-01-15 | Outpatient (CLI) | payer OTHER, SELFPAY ==
--- NOTE | 2025-01-15 15:30 | XR_ITS ---
Examination: CT chest with intravenous contrast CT abdomen with intravenous contrast CT pelvis with intravenous contrast CT chest without intravenous contrast CT abdomen without intravenous contrast CT pelvis without intravenous contrast 2-D coronal and sagittal reconstructions Time of exam: January 15, 2025, 1732 hours, comparison CT chest April 16, 2024, CT chest December 29, 2023, CT chest May 26, 2023 INDICATIONS: Diagnosis malignant neoplasm of unspecified site of left female breast, status post mastectomy, asymptomatic since 1999 CTDI: vol (mGy) : 8.07 DLP: (mGycm): 555 Technique: Multiple axial images of the chest, abdomen and pelvis with intravenous contrast, 3.0 mm slice thickness. Images obtained post intravenous injection Isovue 370 60 cc. 2-D sagittal and coronal reconstructions. Low dose protocols were performed. One or more of the following dose reduction techniques were used; automated exposure control, adjustment of the mA and/or KV according to patient size, use of iterative reconstruction technique. Findings: Ascending thoracic aorta measures 4.0 cm on this study Pulmonary artery segments are not enlarged. No pulmonary artery emboli No paratracheal tracheobronchial or bronchopulmonary adenopathy There are 10 subcentimeter pulmonary nodules throughout the lungs, the largest in the left upper lobe 6 mm The nodules appear stable compared to the April 16, 2024 exam No interval pneumonia or pulmonary edema Liver cysts again depicted No intra or extrahepatic biliary tract dilatation Absent gallbladder No pancreatic mass No hydronephrosis Aorta aortic calcification no aneurysmal dilatation No abdominal or pelvic lymphadenopathy Distended urinary bladder Absent uterus Moderate osteopenia No interval osteolytic or osteoblastic lesions IMPRESSION: Stable 10 subcentimeter bilateral pulmonary nodules, no new pulmonary nodules No pneumonia or pulmonary edema No interval metastatic disease in the abdomen or pelvis
== END | disposition home or self-care (01) ==
LOC: SCAT 15:25
PROVIDERS: PCP Internal Medicine; Referring Provider Internal Medicine Hematology & Oncology; Visit Provider Internal Medicine Hematology & Oncology
DX: R91.8 Other nonspecific abnormal finding of lung field (principal); C50.912 Malignant neoplasm of unspecified site of left female breast
CPT/HCPCS: 71270; 74178; A4649; Q9967

== ENCOUNTER → 2025-02-21 | Outpatient (CLI) | payer OTHER, SELFPAY ==
[2025-02-21 16:10] LABS: Parathyroid Hormone Intact 41.3 pg/ml (18.5-88.0)
[2025-02-21 16:13] LABS: Albumin, Serum 4.3 gm/dL (3.4-4.8); Anion Gap 5 (7-16); BUN/Creatinine Ratio 10 Ratio (12-20); Blood Urea Nitrogen 7 mg/dL (9-23); Calcium 9.6 mg/dL (8.3-10.6); Calcium (Corrected) 9.6 mg/dL (8.5-10.1); Carbon Dioxide 33.0 mMol/L (20.0-31.0); Chloride 96 mMol/L (98-107); Creatinine (Component) 0.7 mg/dL (0.6-1.3); Glucose 90 mg/dL (74-106); Osmolality,Calculated 266 (275-295); Phosphorous 3.3 mg/dL (2.4-5.1); Potassium 3.8 mMol/L (3.4-5.1); Sodium 134 mMol/L (136-145); eGFR > 60 See Note
== END | disposition home or self-care (01) ==
LOC: COPL 14:54
PROVIDERS: PCP Internal Medicine; Referring Provider Internal Medicine; Visit Provider Internal Medicine
DX: I10 Essential (primary) hypertension (principal); E83.52 Hypercalcemia
CPT/HCPCS: 36415; 80069; 83970